=== PATIENT | male | born 1985 | race Caucasian/White ===

== ENCOUNTER → 2016-07-13 17:12 | Emergency (ER) | payer OTHER | END | disposition home or self-care (01) | LOC: SED 17:12 | DX: S46.811A Strain of other muscles, fascia and tendons at shoulder and upper arm level, right arm, initial encounter (principal); S56.911A Strain of unspecified muscles, fascia and tendons at forearm level, right arm, initial encounter; V43.52XA Car driver injured in collision with other type car in traffic accident, initial encounter | CPT/HCPCS: 99283 ==